=== PATIENT | male | born 1980 | race Caucasian/White ===

== ENCOUNTER 2016-11-14 07:40 | Inpatient (IN) | payer BC, OTHER ==
[~2016-11-14] VITALS: Ht 190.5 cm; Wt 95.3 kg
--- NOTE | 2016-11-14 18:10 | NUR ---
Preadmission note Pt seen in intake. Pt VS are stable: BP 129/90, HR 91, T: 98.1, R: 17, SpO2 98% on RA, denies any pain. States he is 6'3'' and weighs 210 pounds. Pt denies taking any medications at home, denies any PMHx, states that he doesn't really "go to the doctor". Pt sates that he is here to "get off of heroin". Pt is stable to come to the unit, Dr Pardo has already placed admission orders.
[2016-11-14 18:16] VITALS: BP 124/90
[2016-11-14 18:51] LABS: *AMPHETAMINE, URINE POSITIVE (NEGATIVE); *BARBITURATE, URINE NEGATIVE (NEGATIVE); *CANNABINOID, URINE NEGATIVE (NEGATIVE); *COCCAINE, URINE NEGATIVE (NEGATIVE); *OPIATE, URINE POSITIVE (NEGATIVE); *PHENCYCLIDINE SCREEN,URINE NEGATIVE (NEGATIVE)
--- NOTE | 2016-11-14 18:54 | NUR ---
ADMISSION NOTE Patient endorsed by outgoing day shift nurse. New patient is a 35 year old male admitted to [facility] on 11/14/2016 @1828 for medically supervised safety withdrawal from ETOH, Opioid, Methamphetamine, and Marijuana. Patient reports NKA. Patient placed on Full Code, Regular Diet, Fall and Seizures Precautions. Patient denies a history of withdrawal-induced seizures. Past Medical History: Anxiety, Depression, Substance use disorder. Patient denies Past Surgical History. Patient reports "I do not have PCP". Pre-assessment completed in intake by day shift nurse. Patient provided UDS test at this time. Patient is ambulatory with steady gate, stable, A&Ox4, speech is clear. Height: 75 in, Weight: 210 lbs by standing scale. VS upon admission: T: 98.1; BP: 129/90; HR: 91; RR:16; RA O2 SAT: 98%. Patient denies any pain at this time: "0/10". CIWA 7. The patient presented with anxiety, agitation, nervousness, tremors that can be felt, diaphoresis, restless legs, and fatigue. Patient denies SI/HI. Upon initial assessment, patient's Respirations unlabored and even. Patient denies SOB and chest pain. Lungs Sounds are clear bilaterally. Bowel Sounds active in all x4 quadrants. Abdomen is soft and non-tender. PERRLA, brisk capillary refill, m1 armor crewman equal and strong. Skin is intact, warm and dry to touch. Patient reports the following Substances Use: 1 ."Alcohol PO "since 2015. Patient reports "consuming alcohol occasionally". Last used on 11/11/2016 at 2100. 2. "Methamphetamine via IV 1/2 gram-11 gram occasionally. Last time used 1/2 gram on 11/12/2016 @0000". 3. "Heroin via IV 1/2 gram-1gram every day during 1 year. Last used 1/4 gram on 11/14/2016 @0800". 4. "Marijuana smoking every day. Last used on 11/14/2016 @0800". Longest sober period was "1 week - 2 years ago". Patient reports "Tobacco use since 2006 every day1 pack = 20 cigarettes". Patient denies Treatment History. NO Home Medications. Patient oriented to his room, Nurse Call Light, and [facility]. Encourage fluids as tolerated. Encourage to attend activities groups. All needs met. Safety measures on place. Call light within reach, bed in lowest position and locked, padded rails up bilaterally rails up bilaterally. Will continue to monitor closely. Addendum: 11/14/16 at 2223 by EDGARDO BAILEY RN COWS 7. Addendum: 11/14/16 at 2235 by EDGARDO BAILEY RN Patient mainly attending here for Heroin dependence. ETOH - occasionally.
--- NOTE | 2016-11-14 18:54 | NUR ---
End of shift note Pt was admitted for opiate dependence. Pt denies any PMHx. Pt denies any allergies, is on a regular diet and a full code. Pt is on PRN medication to manage his s/s of withdrawal. Pt has been oriented to unit. Pt has no complaints at this time. All needs addressed. SBAR report endorsed to DAVION Jones to complete admission assessment.
[2016-11-14 20:00] VITALS: BP 129/90
[2016-11-14 21:13] LABS: BASOPHILS # (AUTO) 0.1 K/uL (0.0-8.0); BASOPHILS % (AUTO) 0.9 % (0.0-2.0); EOSINOPHILS # (AUTO) 0.4 K/uL (0.0-0.7); EOSINOPHILS % (AUTO) 5.6 % (0.0-7.0); HEMATOCRIT 42.1 % (40-50); HEMOGLOBIN 14.4 G/DL (14.0-18.0); LYMPHOCYTES # (AUTO) 2.8 K/UL (0.8-4.8); LYMPHOCYTES % (AUTO) 38.9 % (20.5-51.5); MEAN CORPUSCULAR HEMOGLOBIN 31.1 UUG (27.0-31.0); MEAN CORPUSCULAR HGB CONC 34 g/dL (32.0-37.0); MEAN CORPUSCULAR VOLUME 91.1 FL (82.0-92.0); MONOCYTES # (AUTO) 0.8 K/UL (0.1-1.30); MONOCYTES % (AUTO) 10.5 % (0.0-11.0); NEUTROPHILS # (AUTO) 3.2 K/UL (1.8-8.9); NEUTROPHILS % (AUTO) 44.1 % (38.5-71.5); PLATELET COUNT (AUTO) 261 K/UL (150-450); RED BLOOD CELL COUNT(AUTO) 4.63 MIL/UL (4.7-6.1); WHITE BLOOD COUNT (AUTO) 7.3 K/UL (4.0-11.2)
[2016-11-14 21:28] LABS: ALANINE AMINOTRANSFERASE 241 U/L (16-63); ALKALINE PHOSPHATASE 60 U/L (50-136); ASPARTATE AMINOTRANSFERASE 105 U/L (15-37); BILIRUBIN,TOTAL 0.5 mg/dL (0.2-1.0); CARBON DIOXIDE 31 mmol/L (21-32); CHLORIDE 103 mmol/L (98-107); CREATININE 1.2 mg/dL (0.6-1.3); GLUCOSE 105 mg/dL (74-106); MAGNESIUM 1.7 mg/dL (1.8-2.4); POTASSIUM 4.2 mmol/L (3.5-5.1); TOTAL PROTEIN, SERUM 7.4 g/dL (6.4-8.2); UREA NITROGEN, BLOOD 9 mg/dL (7-18)
[2016-11-14 21:30] LABS: ETHANOL < 3 MG/DL (0-0)
--- NOTE | 2016-11-14 22:26 | NUR ---
MAGNESIUM OXIDE 800 MG 2 TAB PO ADMINISTRATED Magnesium Oxide 800 mg 2 tab PO administrated for hypomagnesia as ordered with full glass of water. Patient tolerated well. All needs met. Safety measures on place. Call light within reach, bed in lowest position and locked, padded rails up bilaterally rails up bilaterally. Patient endorsed by day shift nurse
--- NOTE | 2016-11-14 22:30 | NUR ---
PRN ROBAXIN 750 MG 1 TAB PO, PRN VISTARIL 25 MG 1 CAP PO, AND PRN BENADRYL 50 MG 1 CAP PO ADMINISTRATION Patient c/o myalgia and increase anxiety. PRN Robaxin 750 mg 1 tab PO for myalgia,PRN Vistaril 25 mg 1 cap PO for anxiety, and PRN Benadryl 50 mg 1 cap PO for insomnia administrated with full glass of water as ordered. Patient tolerated well. All needs met. Safety measures on place. Call light within reach, bed in lowest position and locked, padded rails up bilaterally rails up bilaterally. Will continue to monitor closely. Addendum: 11/16/16 at 0427 by EDGARDO BAILEY RN Patient c/o myalgia,increase anxiety, and insomnia. Padded rails up bilaterally.
--- NOTE | 2016-11-14 23:30 | NUR ---
RE-ASSESSMENT Patient is sleeping. Respirations even and unlabored. RR:15. PRN Robaxin 750 mg 1 tab PO for myalgia , PRN Vistaril 25 mg 1 cap PO for anxiety, and PRN Benadryl 50 mg 1 cap PO were effective. All needs met. Safety measures on place. Call light within reach, bed in lowest position and locked, padded rails up bilaterally rails up bilaterally. Will continue to monitor closely.
[2016-11-15] VITALS: BP 127/72
[2016-11-15 04:00] VITALS: BP 107/53
--- NOTE | 2016-11-15 07:17 | NUR ---
END OF SHIFT NOTE: Patient endorsed by outgoing day shift nurse. New patient is a 35 year old male admitted to [facility] on for medically supervised safety withdrawal from Opioid, Methamphetamine, ETOH, and Marijuana. Patient reports NKA. Patient placed on Full Code, Regular Diet, Fall and Seizures Precautions. Patient denies a history of withdrawal-induced seizures. Past Medical History: Anxiety, Depression, Substance use disorder. Patient denies Past Surgical History. Patient denies Treatment History. Last COWS 5 @0400. COWS taken when patient's alert during the night. Last VS @0500: T: 97.7; BP: 108/62; HR:83; RR:18; RA O2 SAT: 96%. Pain level: "0/10". Patient denies SI/HI. Respirations unlabored and even. Abdomen is soft and non-tender. Skin is intact, warm and dry to touch. Magnesium Oxide 800 mg 2 tab PO administrated for hypomagnesia @2226 as ordered. PRN Robaxin 750 mg 1 tab PO for myalgia, PRN Vistaril 25 mg 1 cap PO for anxiety, and PRN Benadryl 50 mg 1 cap PO for insomnia administrated @2230 were effective. Patient slept 5 hour 45 minutes, intake 296 ml, voided x1. Encourage fluids as tolerated. All needs met. Safety measures on place. Call light within reach, bed in lowest position and locked, padded rails up bilaterally. Patient endorsed by day shift nurse Addendum: 11/15/16 at 0719 by EDGARDO BAILEY RN Patient endorsed to day shift nurse in stable condition.
--- NOTE | 2016-11-15 07:51 | NUR ---
BEGINNING OF SHIFT Patient endorsement report received from blueprint clerk nurse, all pertinent information discussed. Patient is a 35 year old male with admitting Dx:Opiate dependence, substance use history of: Marijuana, etoh, and methamphetamine. Patient currently with ongoing 5 day subutex taper as ordered, and is scheduled to start day 1 this morning. blueprint clerk patient received PRN: Benadryl, robaxin and vistaril. Patient slept for 6 hours. Patient received awake, alert and oriented x4, Educated patient regarding plan of care for the day and medication regimen with good verbal understanding. will continue to monitor closely. Safety measures in place. call light kept with in reach, will continue to monitor closely.
[2016-11-15 08:15] VITALS: BP 128/75
[2016-11-15 12:17] VITALS: BP 121/97
--- NOTE | 2016-11-15 16:37 | NUR ---
Therapist prompted client about group times. Client stated he will start to attend groups tomorrow.
[2016-11-15 16:46] VITALS: BP 136/73
--- NOTE | 2016-11-15 18:49 | NUR ---
END OF SHIFT Patient alert and oriented x4, vital signs were stable during shift. Patient compliant with therapeutic plan of care during shift. Patient with admitting Dx: opiate dependence. Patient was started on a 5 day Subutex taper as ordered and first dose of taper was administered this morning, well tolerated, no ASE noted. 0900 assessment patient presented with: difficulty sitting still, flushed, dilated pupils, mild bone and joint aches, moist eyes, mild nausea, tremors that can be felt but not seen, yawning, goosebump and anxiety with cow score of: 14; 1300 assessment patient presented with: heart rate of 86, c/o chills, difficulty sitting still, dilated pupils, mild bone and joitn aches, moist eyes, mild nausea and mild anxiety with cow score of: 10; 1700 assessment patient presented with: heart rate of 85, c/o chills, dilated pupils, mild bone and joint aches, mild nausea with no vomiting, and mild anxiety with cow score of: 8. During shift patient received no PRNs during shift. encouraged to attend group therapies/sessions to learn new coping skills to prevent relapse, noted attending and participating. Patient denies SI/HI. Patient encouraged adequate PO fluid intake as tolerated. Safety measures in place. call light kept with in reach, safety measures in place. will continue to monitor closely. patient endorsed to manager shift nurse, all pertinent information discussed.
--- NOTE | 2016-11-15 18:49 | NUR ---
START OF SHIFT NOTE: Patient endorsed by outgoing day shift nurse. Patient is a 35 year old male admitted to [facility] on for medically supervised safety withdrawal from Opioid, Methamphetamine, ETOH, and Marijuana. Patient continue 5 Day Subutex Taper with tolerated well without ASE. Patient remains compliant with therapy, medications, and diet regime. Patient reports NKA. Patient placed on Full Code, Regular Diet, Fall and Seizures Precautions. Patient denies a history of withdrawal-induced seizures. Past Medical History: Anxiety, Depression, Substance use disorder. Patient denies Past Surgical History. Patient denies Treatment History. Upon endorsement patient is in his room alert and oriented x4. Speech is clear and soft. VS: T: 97.7, BP: 131/71, HR: 80, RR:18, RA O2Sat 99%, Pain level "0/10". COWS 5. Patient denies SI/HI. Respirations unlabored and even. Abdomen is soft and non-tender. Skin is intact, warm and dry to touch. Encourage fluids as tolerated. All needs met. Safety measures on place. Call light within reach, bed in lowest position and locked, padded rails up bilaterally. Will continue to monitor closely.
[2016-11-15 20:00] VITALS: BP 131/71
[2016-11-16] VITALS: BP 122/80
--- NOTE | 2016-11-16 02:05 | NUR ---
PRN BENADRYL 50 MG 1 CAP PO ADMINISTRATION Patient c/o insomnia. PRN Benadryl 50 mg 1 capsule PO administrated with full glass of water as ordered. Patient tolerated well. All needs met. Safety measures on place. Call light within reach, bed in lowest position and locked, padded rails up bilaterally rails up bilaterally. Will continue to monitor closely.
[2016-11-16 04:00] VITALS: BP 119/72
--- NOTE | 2016-11-16 04:15 | NUR ---
PRN ROBAXIN 750 MG 1 TAB PO, PRN VISTARIL 25 MG 1 CAP PO ADMINISTRATION Patient c/o myalgia and increase anxiety. PRN Robaxin 750 mg 1 tab PO for myalgia and PRN Vistaril 25 mg 1 cap PO for anxiety administrated with full glass of water as ordered. Patient tolerated well. All needs met. Safety measures on place. Call light within reach, bed in lowest position and locked, padded rails up bilaterally. Will continue to monitor closely.
--- NOTE | 2016-11-16 05:15 | NUR ---
RE-ASSESSMENT Patient is sleeping. Respirations even and unlabored. RR:15. PRN Robaxin 750 mg 1 tab PO for myalgia and PRN Vistaril 25 mg 1 cap PO for anxiety were effective. All needs met. Safety measures on place. Call light within reach, bed in lowest position and locked, padded rails up bilaterally rails up bilaterally. Will continue to monitor closely.
--- NOTE | 2016-11-16 06:58 | NUR ---
END OF SHIFT NOTE: Patient is a 35 year old male admitted to [facility] on for medically supervised safety withdrawal from Opioid, Methamphetamine, ETOH, and Marijuana, continue 5 Day Subutex Taper which tolerated well without ASE. Patient remains compliant with treatment plan, medications, and diet regime. Patient reports NKA. Patient is on Full Code, Regular Diet, is on Fall and Seizures Precautions. Patient denies a history of withdrawal-induced seizures. Last COWS 6 @0400. COWS taken when patient's alert during the night. Last VS @0400: T: 97.8; BP: 119/72; HR:74; RR:18; RA O2 SAT: 99%. Pain level: "0/10". Patient denies SI/HI. Respirations unlabored and even. Abdomen is soft and non-tender. Skin is intact, warm and dry to touch. PRN Benadryl 50 mg 1 tab PO administrated for insomnia @0205, PRN Robaxin 750 mg 1 tab PO administrated for myalgia @0415, and PRN Vistaril 25 mg 1 cap PO administrated for anxiety @0415 were effective. Patient slept 4 hour, intake 1,355 ml, voided x3. Encouraged fluids as tolerated. Encouraged to attend groups activities. All needs met. Safety measures on place. Call light within reach, bed in lowest position and locked, padded rails up bilaterally. Patient endorsed to day shift nurse. Report given.
[2016-11-16 07:06] LABS: HEPATITIS B SURFACE AG Negative (Negative)
--- NOTE | 2016-11-16 07:20 | NUR ---
BEGINNING OF SHIFT Patient endorsement report received from overnight houseperson nurse, all pertinent information discussed. Patient is a 35 year old male with admitting Dx:Opiate dependence, substance use history of: Marijuana, etoh, and methamphetamine. Patient currently with ongoing 5 day subutex taper as ordered, and is scheduled to start day 2 this morning. as per overnight houseperson patient received PRN: Benadryl, robaxin and vistaril. Patient slept for 4 hours. Patient received awake, alert and oriented x4, Educated patient regarding plan of care for the day and medication regimen with good verbal understanding. will continue to monitor closely. Safety measures in place. call light kept with in reach, will continue to monitor closely.
[2016-11-16 08:22] VITALS: BP 115/67
[2016-11-16 13:20] VITALS: BP 104/70
--- NOTE | 2016-11-16 15:04 | NUR ---
Therapist prompted client about group times. Client stated he will attend all groups today.
[2016-11-16 16:00] VITALS: BP 127/76
--- NOTE | 2016-11-16 19:00 | NUR ---
END OF SHIFT Patient alert and oriented x4, vital signs were stable during shift. Patient compliant with therapeutic plan of care during shift. Patient with admitting Dx: opiate dependence. Patient continues on Subutex taper as ordered and is currently on day 2 of taper, well tolerated, no ASE noted. During shift relayed to MD patients Hep c results, as per MD he will follow up. 0900 assessment patient presented with: c/o chills, restlessness, dilated pupils, mild bone and joint aches, tremors that can be felt but not seen, mild anxiety with cow score of: 7; 1300 assessment patient presented with: heart rate of 88, difficulty sitting still, dilated pupils, mild bone and joint aches, tremors that can be felt but not seen, and mild anxiety with cow score of: 6; 1700 assessment patient presented with: heart rate of 80, difficulty sitting still, dilated pupils, mild bone and joint aches, tremors that can be felt but not seen, and mild anxiety with cow score of: 6During shift patient received no PRNs during shift. encouraged to attend group therapies/sessions to learn new coping skills to prevent relapse, noted attending and participating. Patient denies SI/HI. Patient encouraged adequate PO fluid intake as tolerated. Safety measures in place. call light kept with in reach, safety measures in place. will continue to monitor closely. patient endorsed to shift supervisor rn nurse, all pertinent information discussed.
--- NOTE | 2016-11-16 19:15 | NUR ---
START OF SHIFT NOTE : Patient is a 35 year old male admitted to [facility] on for medically supervised safety withdrawal from Opioid, Methamphetamine, ETOH, and Marijuana. Patient is on 5 Day Subutex Taper , tolerating well , started on 11/15/2016. Patient remains compliant with therapy, medications, and diet regime. Patient reports NKA. Patient placed on Full Code, Regular Diet, Fall and Seizures Precautions. Patient denies a history of withdrawal-induced seizures. Past Medical History: Anxiety, Depression, Substance use disorder. Pt. is at the meeting right now. All needs met. Safety measures on place. Call light within reach, bed in lowest position and locked, padded rails up bilaterally. Will continue to monitor closely.
[2016-11-16 20:00] VITALS: BP 126/70
--- NOTE | 2016-11-16 21:00 | NUR ---
PRN TRAZODONE Patient c/o insomnia. PRN TRAZODONE PO administrated with full glass of water as ordered. Patient tolerated well. All needs met. Safety measures on place. Call light within reach, bed in lowest position and locked, padded rails up bilaterally rails up bilaterally. Will continue to monitor closely.
--- NOTE | 2016-11-16 21:59 | NUR ---
RE-ASSESSMENT TRAZODONE Patient is sleeping, RR=16, even and unlabored. All needs met. Safety measures on place. Call light within reach, bed in lowest position and locked, padded rails up bilaterally rails up bilaterally. Will continue to monitor closely.
[2016-11-17 04:00] VITALS: BP 117/55
--- NOTE | 2016-11-17 07:00 | NUR ---
END OF SHIFT NOTE : Patient is a 35 year old male admitted to [facility] on for medically supervised safety withdrawal from Opioid, Methamphetamine, ETOH, and Marijuana. Patient is on 5 Day Subutex Taper , tolerating well , started on 11/15/2016. Patient remains compliant with therapy, medications, and diet regime. Patient reports NKA. Patient placed on Full Code, Regular Diet, Fall and Seizures Precautions. Patient denies a history of withdrawal-induced seizures. Past Medical History: Anxiety, Depression, Substance use disorder. Pt remains compliant with the treatment plan. PRN TRAZODONE given during my shift. V/S remain WNL. RR=16, even and unlabored, lungs clear upon auscultation, abdomen soft and non- distended. Pt denies nausea, vomiting and diarrhea. CIWA taken when pt. was alert during the night, LAST CIWA= 3 at 0400 , [id number] ml, voided x2 , slept 3 hours. Safety measures in place : bed on lowest position with side rails x2 up for safety, call light within reach. Will continue to monitor closely and offer help.
--- NOTE | 2016-11-17 07:47 | NUR ---
Start of Shift notes: Received patient in his room. Alert and verbally responsive. Oriented x 4. Able to make her needs known. Respirations even and unlabored. No SOB noted. Skin warm and dry to touch. Abdomen soft and non-distended. BS (+) in all 4 quadrants. No complains of N/V/D or constipation noted. Bladder non-distended. Voids independently. Ambulatory ad daniel with steady gait. Patient is a 35 year old male admitted for opiate dependence who was placed on a 5-day Subutex taper as ordered. No adverse reactions noted. Has past medical hx of Hep C. NKA. FULL CODE. Regular diet. On fall and seizure precautions. Educated patient on his current plan of care for the day and his medication regimen. Encouraged oral fluid intake and encouraged group participation to learn new skills to prevent relapse. Will continue to monitor.
[2016-11-17 08:00] VITALS: BP 129/64
--- NOTE | 2016-11-17 08:34 | NUR ---
Robaxin 750 mg PO given: Patient complained of 7/10 myalgia related to his withdrawal symptoms. Non-pharmacological interventions provided but ineffective. Medicated patient with Robaxin 750 mg PO as ordered. Will monitor for effectiveness.
--- NOTE | 2016-11-17 09:34 | NUR ---
Re-assessment: Per patient, PRN Robaxin was effective in reducing myalgia. PL 02/14.
[2016-11-17 12:00] VITALS: BP 122/74
[2016-11-17 16:00] VITALS: BP 112/72
--- NOTE | 2016-11-17 19:06 | NUR ---
End of Shift Notes: Patient continues to be on 5-day Subutex taper as ordered. No adverse reactions noted. Patient is tolerating taper well. VS monitored closely. No significant abnormalities noted. Withdrawal symptoms closely monitored. Patient presented with chills, hot flashes, restless legs, and myalgia. Initial COWS 6, last COWS 3. PRN Robaxin given at 0834 for myalgia with help after 1 hour. Able to participate in group and activities. Compliant with care and treatment. Seen and examined by Dr. Gibbons and increased patient's Trazodone. Education provided and verbalized good understanding. Per patient, Subutex has been effective in relieving his withdrawal symptoms. All needs met and attended. Will endorse to night nurse for continuity of care.
--- NOTE | 2016-11-17 19:30 | NUR ---
Start of shift note Patient is a 35 year old male admitted to [facility] on 11/14/16 for opiate detox. Patient is on a 5 Day Subutex taper started on 11/15/2016. Patient has NKA. He is on a Full Code, Regular Diet, Fall and Seizures Precautions. Past psychiatric History includes Anxiety and Depression. Safety measures on place. Call light within reach, bed in lowest position, locked, padded side rails up. At change of shift patient in group. No complaints offered. Last COWS 3 at 1600. Will continue to monitor closely. Report received from AM nurse.
[2016-11-17 20:00] VITALS: BP 152/79
[2016-11-17 20:36] VITALS: BP 140/70
--- NOTE | 2016-11-17 20:37 | NUR ---
PRN medication Patient received Trazodone 100 mg PO at 2036 for difficulty sleeping. Effect pending.
--- NOTE | 2016-11-17 21:37 | NUR ---
REASSESSMENT OF PATIENT patient reasessed one hour after PRN trazodone given for sleeplessness. Patient noted to be awake, but reports feeling sleepy and feels trazodone is effective. Fair effect assessed.
[2016-11-18] VITALS: BP 104/68
--- NOTE | 2016-11-18 04:00 | NUR ---
COWS DEFERRED 0400 VITAL SIGNS REFUSED. COWS DEFERRED PATIENT ASLEEP. PATIENT RESTING COMFORTABLY IN BED. EYES CLOSED, BREATHING EVEN AND UNLABORED. R 16.
--- NOTE | 2016-11-18 06:55 | NUR ---
End of shift Patient is a 35 year old male admitted to [facility] on 11/14/16 for opiate detox. Patient is on a 5 Day Subutex taper. Patient has NKA. He is on a Full Code, Regular Diet, On fall and Seizures Precautions. Safety measures in place. Past psychiatric History includes Anxiety and Depression. Patient reports anxiety, restlessness, and difficulty with thoughts of using. VS at 1999 BP 152/79, P 94, R 19, SPO2 96% RA, T 98.5. BP rechecked at 2029 with BP 141/70, P 81. VS 0000 BP 104/68, P 81, R 18, SPO2 99% on RA, T 97.9 COWS 4. Patient received Trazodone 100 mg at 2036 for insomnia with effect. Patient slept a total of 5 hours. Intake 1490 Ml output 3 voids. Call light within reach, bed locked and in lowest position, 2 padded side rails up. Report given to AM nurse.
[2016-11-18 08:00] VITALS: BP 125/66
[2016-11-18 12:00] VITALS: BP 105/68
[2016-11-18 16:00] VITALS: BP 108/61
--- NOTE | 2016-11-18 19:11 | NUR ---
End of Shift Notes: Patient continues to be on 5-day Subutex taper as ordered. No adverse reactions noted. Patient is tolerating taper well. VS monitored closely. No significant abnormalities noted. Withdrawal symptoms closely monitored. Initial COWS 5, patient presented with anxiety and myalgia. Last COWS 3 Able to participate in group and activities. Compliant with care and treatment. Education provided and verbalized good understanding. Per patient, Subutex has been effective in relieving his withdrawal symptoms. All needs met and attended. Will endorse to night nurse for continuity of care.
--- NOTE | 2016-11-18 19:33 | NUR ---
Start of shift note Patient is a 35 year old male admitted to [facility] on 11/14/16 for opiate detox. Patient is on a 5 Day Subutex taper started on 11/15/2016. Patient has NKA. He is on a Full Code, Regular Diet, Fall and Seizures Precautions. Past psychiatric History includes Anxiety and Depression. Safety measures in place. Call light within reach, bed in locked and lowest position, padded side rails up. No current complaints offered. Last COWS 3 at 1600. Will continue to monitor closely. Report received from AM nurse.
[2016-11-18 20:00] VITALS: BP 137/75
--- NOTE | 2016-11-19 | NUR ---
COWS deferred. Vital signs refused Patient refused 0000 vital signs stating he wants to sleep. COWS deferred. Patient resting comfortably in bed eyes closed. R 16.
--- NOTE | 2016-11-19 04:11 | NUR ---
COWS deferred. Vital signs refused Patient refused 0400 vital signs stating he wants to sleep. COWS deferred. Patient resting comfortably in bed eyes closed. R 18.
--- NOTE | 2016-11-19 06:56 | NUR ---
End of Shift Patient is a 35 year old male admitted to [facility] on 11/[facility]16 for opiate detox. Patient is on a 5 Day Subutex taper started on 11/15/2016. Taper has been effective with reducing severity of symptoms. Patient attending unit groups and tolerating diet and fluids. Patient has NKA. He is on a Full Code, Regular Diet, Fall and Seizures Precautions. Past psychiatric History includes Anxiety and Depression. VS at 1999 BP 137/75, P 83, R 18, T 97.6, SPO2 98% on RA. COWS 3. Intake 1922 ml output 3 voids. Slept total of 5 hours. Safety measures in place. Call light within reach, bed in locked and lowest position, padded side rails up. Report given to AM nurse.
--- NOTE | 2016-11-19 07:40 | NUR ---
START OF SHIFT NOTE Received report from night nurse, 35 year old male admitted for opiate detox. Patient is on a 5 Day Subutex taper. Pt cont on 5 day Subutex taper. Pt has PMH of Hep-c. Per endorsement pt did not receive any PRN, slept for 5 hours, last CIWA was 3. Patient received awake, alert and oriented x4, Educated patient regarding plan of care for the day and medication regimen with good verbal understanding. Safety measures in place. call light with in reach, will continue to monitor.
[2016-11-19 08:00] VITALS: BP 106/62
[2016-11-19 12:00] VITALS: BP 120/60
[2016-11-19] MEDS ORDERED: CLON0.1T14 PO (14:54)
[2016-11-19] MEDS ORDERED: IBUP-1955 PO (14:54)
[2016-11-19] MEDS ORDERED: TRAZ-147 PO (14:54)
[2016-11-19] MEDS ORDERED: BACL20TA PO (14:54)
[2016-11-19] MEDS ORDERED: GABA-536 PO (14:54)
[2016-11-19] MEDS ORDERED: DICY20TA28 PO (14:54)
[2016-11-19] MEDS ORDERED: HYDR-3895 PO (14:54)
[2016-11-19 16:00] VITALS: BP 126/61
--- NOTE | 2016-11-19 19:15 | NUR ---
END OF SHIFT NOTE Patient is alert oriented x4. 35 year old male admitted for Heroin, Marijuana dependence. Patient completed his Subutex taper tolerated well. Patient has PMH of Hep-C. Patient did not received any PRN during shift. Patient scheduled for discharge in AM. Vital signs remained WNL. Patient remained compliant with treatment plan and medication regime. Medications were effective in reducing withdrawal symptoms. All safety measures in place, Call light within reach. Patient endorsed to night nurse in stable condition.
[2016-11-19 20:00] VITALS: BP 109/70
--- NOTE | 2016-11-19 20:00 | NUR ---
START OF SHIFT NOTE RECEIVED REPORT FROM DAY SHIFT NURSE. PATIENT IS 35 YEAR OLD MALE ADMITTED FOR ETOH/METH/OPIATE/MARIJUANA DEPENDENCE. PATIENT IS MEDICALLY CLEARED TO BE DISCHARGE TOMORROW. PATIENT COMPLETED 5 DAY SUBUTEX TAPER. PATIENT IS HEP C + AND NO SEIZURE HISTORY. PATIENT DID NOT REQUIRE ANY PRN MEDICATION. LAST COWS 2. RECEIVED PATIENT ALERT AND ORIENTED X 4. RESPIRATION EVEN AND UNLABORED. PATIENT REPORTS ANXIETY FOR TOMORROW, "I'M LEAVING" HE STATES. DENIES ANY PAIN. NO N/V. ON FALL/SEIZURE PRECAUTION. SAFETY MEASURES IN PLACE. CALL LIGHT IN REACH .WILL CONTINUE TO MONITOR.
--- NOTE | 2016-11-19 20:28 | NUR ---
PRN TRAZADONE ADMINISTRATION PATIENT REQUESTS FOR SLEEP AID. PRN TRAZADONE GIVEN. WILL MONITOR FOR EFFECTIVENESS
--- NOTE | 2016-11-19 22:00 | NUR ---
PRN TRAZADONE RE-ASSESSMENT PATIENT ASLEEP AT THIS TIME. RESPIRATION EVEN AND UNLABORED. WILL CONTINUE TO MONITOR
--- NOTE | 2016-11-20 | NUR ---
COWS DEFERRED PATIENT SLEEPING. COWS DEFERRED. VS REFUSED. RESPIRATION EVEN AND UNLABORED. SAFETY MEASURES IN PLACE. CALL LIGHT IN REACH. WILL CONTINUE TO MONITOR
--- NOTE | 2016-11-20 04:00 | NUR ---
COWS DEFERRED PATIENT SLEEPING. COWS DEFERRED. VS REFUSED. RESPIRATION EVEN AND UNLABORED. SAFETY MEASURES IN PLACE. CALL LIGHT IN REACH. WILL CONTINUE TO MONITOR
--- NOTE | 2016-11-20 07:04 | NUR ---
END OF SHIFT NOTE PATIENT IS 35 YEAR OLD MALE ADMITTED FOR ETOH/METH/OPIATE/MARIJUANA DEPENDENCE. PATIENT IS MEDICALLY CLEARED TO BE DISCHARGE TODAY. PATIENT COMPLETED 5 DAY SUBUTEX TAPER. PATIENT IS HEP C + AND NO SEIZURE HISTORY. PATIENT REMAIN ALERT AND ORIENTED X 4. RESPIRATION EVEN AND UNLABORED. PATIENT REPORTED ANXIETY BEGINNING OF SHIFT. PATIENT WAS GIVEN PRN TRAZADONE FOR SLEEP. ON FALL/SEIZURE PRECAUTION. SAFETY MEASURES IN PLACE. CALL LIGHT IN REACH .WILL CONTINUE TO MONITOR. SLEPT 7 HOURS. FLUID INTAKE 1,363 ML. VOIDED X 4 . NO BM. LAST COWS 1 .
--- NOTE | 2016-11-20 07:12 | NUR ---
COWS DEFERRED PATIENT SLEEPING. COWS DEFERRED. VS REFUSED. RESPIRATION EVEN AND UNLABORED. SAFETY MEASURES IN PLACE. CALL LIGHT IN REACH. WILL CONTINUE TO MONITOR Addendum: 11/20/16 at 0713 by LESLY MARTINEZ LVN ERROR: TIME
--- NOTE | 2016-11-20 07:48 | NUR ---
START OF SHIFT NOTE Received report from night nurse, 35 year old male admitted for opiate detox. Patient is on a 5 Day Subutex taper. Pt completed his 5 day Subutex taper tolerated well. Pt has PMH of Hep-c. Per endorsement pt received PRN Trazodone effective per night nurse, slept for 7 hours, last COWS was 1. Patient received awake, alert and oriented x4, Educated patient regarding plan of care for the day and medication regimen with good verbal understanding. Safety measures in place. call light within reach, will continue to monitor.
[2016-11-20 08:00] VITALS: BP 119/60
[2016-11-20 08:16] VITALS: BP 119/60
--- NOTE | 2016-11-20 09:27 | NUR ---
DISCHARGE NOTE Patient is in stable condition. Vital signs WNL, Patient is alert oriented x4, Skin intact warm and dry to touch. Patient denies any SI/HI ideations. All discharge paper work done signed and dated. Patient educated about discharge instructions, Pt verbalized understanding. Patient 's last COWS score was 1. Patient discharged from [facility] on 11/20/16 at 0927. Patient left the building with all of his belongings, Patient did not bring any medications with him to the unit. has been contracted and notified of Pt's discharge.
== END 2016-11-20 09:27 | DRG 895 ==
LOC: SRC 17:20
PROVIDERS: ADMIT Internal Medicine; ATTEND Internal Medicine
PROC: HZ2ZZZZ Detoxification Services for Substance Abuse Treatment (ICD-10-PCS; principal; 2016-11-14)
PROC: HZ31ZZZ Individual Counseling for Substance Abuse Treatment, Behavioral (ICD-10-PCS; 2016-11-15)
PROC: HZ41ZZZ Group Counseling for Substance Abuse Treatment, Behavioral (ICD-10-PCS; 2016-11-16)
DX: F11.23 Opioid dependence with withdrawal (principal); E83.42 Hypomagnesemia; B19.20 Unspecified viral hepatitis C without hepatic coma; F10.11 Alcohol abuse, in remission; Y90.9 Presence of alcohol in blood, level not specified; F17.210 Nicotine dependence, cigarettes, uncomplicated; R74.0 Nonspecific elevation of levels of transaminase and lactic acid dehydrogenase [LDH]; F15.23 Other stimulant dependence with withdrawal; Z83.3 Family history of diabetes mellitus; Z80.1 Family history of malignant neoplasm of trachea, bronchus and lung; Z81.3 Family history of other psychoactive substance abuse and dependence
CPT/HCPCS: 36415; 70030-TC; 80307; 80324; 80361; 83735; 85025; 86580; 86592; 86705; 86803; 87340; 87806; G0480; Q0163